=== PATIENT | female | born 1955 | race Caucasian/White ===

== ENCOUNTER → 2019-08-01 | Outpatient (CLI) | payer SELFPAY | END | disposition home or self-care (01) | LOC: MRI 14:42 | PROVIDERS: ATTEND Radiology Diagnostic Radiology | DX: M48.02 Spinal stenosis, cervical region (principal); M47.812 Spondylosis without myelopathy or radiculopathy, cervical region | CPT/HCPCS: 72141 ==

== ENCOUNTER → 2020-07-29 | Outpatient (CLI) | payer BC | END | disposition home or self-care (01) | LOC: MRI 12:27 | DX: S83.242A Other tear of medial meniscus, current injury, left knee, initial encounter (principal); S83.412A Sprain of medial collateral ligament of left knee, initial encounter; S76.112A Strain of left quadriceps muscle, fascia and tendon, initial encounter; M17.12 Unilateral primary osteoarthritis, left knee; M71.22 Synovial cyst of popliteal space [Baker], left knee; X58.XXXA Exposure to other specified factors, initial encounter; Y93.89 Activity, other specified; Y92.89 Other specified places as the place of occurrence of the external cause; Y99.8 Other external cause status | CPT/HCPCS: 73560; 73721 ==

== ENCOUNTER → 2020-08-04 | Outpatient (CLI) | payer BC | END | disposition home or self-care (01) | LOC: RAD 14:20 | DX: M17.12 Unilateral primary osteoarthritis, left knee (principal) | CPT/HCPCS: 73564 ==

== ENCOUNTER → 2020-10-20 | Outpatient (CLI) | payer BC | END | disposition home or self-care (01) | LOC: MRI 11:47 | PROVIDERS: ATTEND Internal Medicine | DX: S83.511A Sprain of anterior cruciate ligament of right knee, initial encounter (principal); S83.211A Bucket-handle tear of medial meniscus, current injury, right knee, initial encounter; S83.011A Lateral subluxation of right patella, initial encounter; M25.461 Effusion, right knee; X58.XXXA Exposure to other specified factors, initial encounter; Y93.89 Activity, other specified; Y92.89 Other specified places as the place of occurrence of the external cause; Y99.8 Other external cause status | CPT/HCPCS: 73721 ==

== ENCOUNTER → 2020-11-02 | Outpatient (CLI) | payer BC ==
[2020-11-02 12:16] LABS: BASOPHILS % 0.7 % (0.0-2.0); EOSINOPHILS % 2.8 % (0.0-5.0); HEMATOCRIT. 45.1 % (36.0-48.0); HEMOGLOBIN. 15.4 g/dL (12.0-16.0); LYMPHOCYTES % 29.7 % (20.0-50.0); MEAN CORPUSCULAR HEMOGLOBIN 28.5 pg (28.0-32.0); MEAN CORPUSCULAR VOLUME 83.3 fL (81.0-99.0); MEAN PLATELET VOLUME 9.3 fl (7.4-10.4); MONOCYTES % 11.3 % (2.0-8.0); NEUTROPHILS % 55.5 % (40.0-76.0); PLATELET 230 x1000/uL (130-400); RED BLOOD CELL COUNT 5.42 mill/uL (4.2-5.4); RED CELL DISTRIBUTION WIDTH 14.2 % (11.6-14.6)
[2020-11-02 12:24] LABS: CHLORIDE 108 mEq/L (98-107)
[2020-11-02 12:25] LABS: CLARITY URINE CLEAR (CLEAR); COLOR URINE YELLOW (YELLOW); KETONES URINE NEGATIVE (NEGATIVE); LEUKOCYTE ESTERASE URINE NEGATIVE (NEGATIVE); NITRITE URINE NEGATIVE (NEGATIVE); OCCULT BLOOD URINE NEGATIVE (NEGATIVE); PROTEIN URINE NEGATIVE (NEGATIVE); SPECIFIC GRAVITY URINE 1.017 (1.005-1.030); UROBILINOGEN URINE 0.2 E.U./dL (0.2-1.0)
[2020-11-02 12:55] LABS: PARTIAL THROMBOPLASTIN TIME 26.7 sec (23.4-31.0); PROTHROMBIN TIME 10.9 sec (9.6-11.0)
== END | disposition home or self-care (01) ==
LOC: LAB 11:34
DX: Z01.818 Encounter for other preprocedural examination (principal); Z20.822 Contact with and (suspected) exposure to COVID-19
CPT/HCPCS: 36415; 71045; 80048; 81003; 85025; 85610; 85730; 87086; 93005; C9803; U0003

== ENCOUNTER → 2022-03-04 | Outpatient (CLI) | payer BC ==
[2022-03-04 10:48] LABS: BASOPHILS % 0.5 % (0.0-2.0); EOSINOPHILS % 1.1 % (0.0-5.0); HEMATOCRIT. 47.9 % (36.0-48.0); LYMPHOCYTES % 22.9 % (20.0-50.0); MEAN CORPUSCULAR HEMOGLOBIN 28.5 pg (28.0-32.0); MEAN CORPUSCULAR VOLUME 85.5 fL (81.0-99.0); MEAN PLATELET VOLUME 9.5 fl (7.4-10.4); MONOCYTES % 8.3 % (2.0-8.0); NEUTROPHILS % 67.2 % (40.0-76.0); PLATELET 224 x1000/uL (130-400); RED CELL DISTRIBUTION WIDTH 14.3 % (11.6-14.6)
[2022-03-04 10:55] LABS: CHLORIDE 107 mEq/L (98-107)
[2022-03-04 11:11] LABS: HDL CHOLESTEROL 35 mg/dL (40-59); LDL CHOLESTEROL 81 mg/dL (5-100)
== END | disposition home or self-care (01) ==
LOC: LAB 09:53
PROVIDERS: ATTEND Internal Medicine
DX: S43.431A Superior glenoid labrum lesion of right shoulder, initial encounter (principal); S46.011A Strain of muscle(s) and tendon(s) of the rotator cuff of right shoulder, initial encounter; S46.111A Strain of muscle, fascia and tendon of long head of biceps, right arm, initial encounter; M19.011 Primary osteoarthritis, right shoulder; M25.711 Osteophyte, right shoulder; M65.811 Other synovitis and tenosynovitis, right shoulder; M75.51 Bursitis of right shoulder; M62.511 Muscle wasting and atrophy, not elsewhere classified, right shoulder; Z00.00 Encounter for general adult medical examination without abnormal findings; I10 Essential (primary) hypertension; X58.XXXA Exposure to other specified factors, initial encounter; Y93.89 Activity, other specified; Y92.89 Other specified places as the place of occurrence of the external cause; Y99.8 Other external cause status
CPT/HCPCS: 36415; 73221; 80053; 80061; 84443; 85025

== ENCOUNTER → 2022-12-08 | Outpatient (CLI) | payer BC | END | disposition home or self-care (01) | LOC: U 10:54 | PROVIDERS: ATTEND Orthopaedic Surgery | DX: S46.001A Unspecified injury of muscle(s) and tendon(s) of the rotator cuff of right shoulder, initial encounter (principal); M19.011 Primary osteoarthritis, right shoulder; M77.8 Other enthesopathies, not elsewhere classified; X58.XXXA Exposure to other specified factors, initial encounter; Y93.89 Activity, other specified; Y92.89 Other specified places as the place of occurrence of the external cause; Y99.8 Other external cause status | CPT/HCPCS: 73221 ==

== ENCOUNTER → 2022-12-08 | Outpatient (CLI) | payer BC ==
[2022-12-08 10:49] LABS: BASOPHILS % 0.5 % (0.0-2.0); EOSINOPHILS % 2.3 % (0.0-5.0); HEMATOCRIT. 46.9 % (36.0-48.0); HEMOGLOBIN. 15.7 g/dL (12.0-16.0); LYMPHOCYTES % 22.1 % (20.0-50.0); MEAN CORPUSCULAR HEMOGLOBIN 28.9 pg (28.0-32.0); MEAN CORPUSCULAR VOLUME 86.3 fL (81.0-99.0); MEAN PLATELET VOLUME 9.5 fl (7.4-10.4); NEUTROPHILS % 65.1 % (40.0-76.0); PLATELET 209 x1000/uL (130-400); RED BLOOD CELL COUNT 5.43 mill/uL (4.2-5.4); RED CELL DISTRIBUTION WIDTH 14.7 % (11.6-14.6)
[2022-12-08 11:06] LABS: CHLORIDE 108 mEq/L (98-107)
[2022-12-08 12:40] LABS: RHEUMATOID FACTOR SCREEN POSITIVE (NEGATIVE)
== END | disposition home or self-care (01) ==
LOC: EEVIPCON 09:49 → LAB 09:49
PROVIDERS: ATTEND Orthopaedic Surgery
DX: S46.001A Unspecified injury of muscle(s) and tendon(s) of the rotator cuff of right shoulder, initial encounter (principal); X58.XXXA Exposure to other specified factors, initial encounter; Y93.89 Activity, other specified; Y92.89 Other specified places as the place of occurrence of the external cause; Y99.8 Other external cause status
CPT/HCPCS: 36415; 80053; 85025; 85651; 86430

== ENCOUNTER → 2022-12-08 | Outpatient (CLI) | payer BC | END | disposition home or self-care (01) | LOC: MAMMO 09:44 | PROVIDERS: ATTEND Internal Medicine | DX: Z12.31 Encounter for screening mammogram for malignant neoplasm of breast (principal); M47.812 Spondylosis without myelopathy or radiculopathy, cervical region; M50.31 Other cervical disc degeneration, high cervical region; M25.78 Osteophyte, vertebrae; M48.02 Spinal stenosis, cervical region | CPT/HCPCS: 72141; 77067 ==

== ENCOUNTER → 2023-11-10 | Outpatient (CLI) | payer BC ==
[2023-11-10 09:18] LABS: BASOPHILS % 0.7 % (0.0-2.0); EOSINOPHILS % 2.7 % (0.0-5.0); HEMATOCRIT. 49.9 % (36.0-48.0); HEMOGLOBIN. 16.1 g/dL (12.0-16.0); LYMPHOCYTES % 29.9 % (20.0-50.0); MEAN CORPUSCULAR HGB CONC 32.3 g/dL (31.0-37.0); MEAN CORPUSCULAR VOLUME 86.5 fL (81.0-99.0); MEAN PLATELET VOLUME 9.8 fl (7.4-10.4); MONOCYTES % 12.3 % (2.0-8.0); NEUTROPHILS % 54.4 % (40.0-76.0); PLATELET 180 x1000/uL (130-400); RED BLOOD CELL COUNT 5.77 mill/uL (4.2-5.4); WHITE BLOOD COUNT 7.7 x1000/uL (4.5-11.0)
[2023-11-10 09:47] LABS: ALANINE AMINOTRANSFERASE 23 IU/L (10-49); ASPARTATE AMINOTRANSFERASE 26 IU/L (<34); BILIRUBIN TOTAL 0.4 mg/dL (0.1-1.0); CALCIUM 8.8 mg/dL (8.7-10.4); CARBON DIOXIDE 27 mEq/L (21-32); CHLORIDE 108 mEq/L (98-107); CHOLESTEROL 134 mg/dL (<200); CREATININE 0.7 mg/dL (0.6-1.0); GLUCOSE 95 mg/dL (70-105); HDL CHOLESTEROL 35 mg/dL (>65); LDL CHOLESTEROL 80 mg/dL (5-100); POTASSIUM 4.4 mEq/L (3.5-5.1); PROTEIN TOTAL 6.2 g/dL (6.0-8.3); SODIUM 140 mEq/L (136-145); T4 FREE 0.98 ng/dL (0.89-1.76); THYROID STIMULATING HORMONE 3.69 uIU/mL (0.55-4.78); TRIGLYCERIDE 180 mg/dL (0-150); UREA NITROGEN BLOOD 18 mg/dL (9-23)
== END | disposition home or self-care (01) ==
LOC: RAD 08:45
PROVIDERS: ATTEND Internal Medicine
DX: J44.9 Chronic obstructive pulmonary disease, unspecified (principal); I10 Essential (primary) hypertension; E66.09 Other obesity due to excess calories; I71.40 Abdominal aortic aneurysm, without rupture, unspecified; L92.8 Other granulomatous disorders of the skin and subcutaneous tissue; K76.0 Fatty (change of) liver, not elsewhere classified; Z72.0 Tobacco use
CPT/HCPCS: 36415; 71250; 80053; 80061; 82306; 83036; 84439; 84443; 85025

== ENCOUNTER → 2023-12-26 | Outpatient (CLI) | payer BC | END | disposition home or self-care (01) | LOC: MRI 14:12 | PROVIDERS: ATTEND Internal Medicine | DX: M17.11 Unilateral primary osteoarthritis, right knee (principal); M25.461 Effusion, right knee; M22.41 Chondromalacia patellae, right knee | CPT/HCPCS: 73721 ==

== ENCOUNTER → 2023-12-29 | Outpatient (CLI) | payer BC | END | disposition home or self-care (01) | LOC: CARD 10:44 | PROVIDERS: ATTEND Internal Medicine | DX: I51.7 Cardiomegaly (principal); I71.40 Abdominal aortic aneurysm, without rupture, unspecified | CPT/HCPCS: 93306 ==

== ENCOUNTER → 2024-07-30 | Outpatient (CLI) | payer BC ==
[2024-07-30 09:18] LABS: BASOPHILS % 0.7 % (0.0-2.0); EOSINOPHILS % 3.6 % (0.0-5.0); HEMATOCRIT. 48.3 % (36.0-48.0); LYMPHOCYTES % 26.7 % (20.0-50.0); MEAN CORPUSCULAR HEMOGLOBIN 28.9 pg (28.0-32.0); MEAN CORPUSCULAR HGB CONC 33.2 g/dL (31.0-37.0); MEAN CORPUSCULAR VOLUME 87.1 fL (81.0-99.0); MEAN PLATELET VOLUME 9.6 fl (7.4-10.4); MONOCYTES % 9.7 % (2.0-8.0); NEUTROPHILS % 59.3 % (40.0-76.0); PLATELET 200 x1000/uL (130-400); RED BLOOD CELL COUNT 5.55 mill/uL (4.2-5.4); RED CELL DISTRIBUTION WIDTH 14.3 % (11.6-14.6); WHITE BLOOD COUNT 7.8 x1000/uL (4.5-11.0)
[2024-07-30 09:41] LABS: CHLORIDE 109 mEq/L (98-107); POTASSIUM 4.5 mEq/L (3.5-5.1); SODIUM 142 mEq/L (136-145)
[2024-07-30 09:42] LABS: CARBON DIOXIDE 30 mEq/L (21-32)
[2024-07-30 09:43] LABS: CALCIUM 9.3 mg/dL (8.7-10.4)
[2024-07-30 09:47] LABS: CREATININE 0.8 mg/dL (0.6-1.0); GLUCOSE 88 mg/dL (70-105); TRIGLYCERIDE 120 mg/dL (0-150)
[2024-07-30 09:48] LABS: LDL CHOLESTEROL 68 mg/dL (5-100); UREA NITROGEN BLOOD 21 mg/dL (9-23)
[2024-07-30 09:49] LABS: ALANINE AMINOTRANSFERASE 25 IU/L (10-49); ALBUMIN 4.1 g/dL (3.2-4.8); ASPARTATE AMINOTRANSFERASE 19 IU/L (<34); CHOLESTEROL 115 mg/dL (<200); HDL CHOLESTEROL 37 mg/dL (>65)
[2024-07-30 09:50] LABS: BILIRUBIN TOTAL 0.4 mg/dL (0.1-1.0); PROTEIN TOTAL 6.4 g/dL (6.0-8.3)
[2024-07-30 09:51] LABS: THYROID STIMULATING HORMONE 2.42 uIU/mL (0.55-4.78)
== END | disposition home or self-care (01) ==
LOC: LAB 08:36
PROVIDERS: ATTEND Internal Medicine
DX: I10 Essential (primary) hypertension (principal); J44.9 Chronic obstructive pulmonary disease, unspecified; K76.0 Fatty (change of) liver, not elsewhere classified; R73.03 Prediabetes
CPT/HCPCS: 36415; 80053; 80061; 83036; 84443; 85025